=== PATIENT | female | born 1970 | race Caucasian/White ===

== ENCOUNTER 2020-06-18 22:16 | Inpatient (IN) | payer BC, SELFPAY ==
[~2020-06-18] VITALS: Ht 157.5 cm; Wt 77.6 kg
[~2020-06-18 22:16] MED LIST: BUPIVACAINE LIPOSOME/PF 266 MG/20 ML VIAL INFIL ONE; CEFAZOLIN 1 GM IVPB PREMIX 50 ML IV ONE; GLYCOPYRROLATE 0.2 MG/ML VIAL IJ ONE; LIDOCAINE 1% 10 MG/ML, 20 ML MDV INJ ONE; LR 1,000 ML IV.SOLN IV ONE; METOCLOPRAMIDE HCL 10 MG/2 ML VIAL IVP ONE; NORMAL SALINE 10 ML VIAL IVP ONE; NS IRRIG SOLN 1000 ML IR ONE; ONDANSETRON HCL 4 MG/2 ML VIAL IVP ONE; PHENYLEPHRINE HCL 10 MG/ML VIAL (NEOSYNEPHRINE) IV ONE; PIPERACILLIN/TAZOBACTAM 3.375 GM/DEX-IS 50 ML PIGGYBACK IV ONE; PROPOFOL 200MG/ 20ML VIAL (DIPRIVAN) IV ONE; ROCURONIUM BROMIDE 10 MG/ML (ZEMURON) IV ONE; SEVOFLURANE 15 MIN GAS INH ONE; fentaNYL CITRATE/PF 100 MCG/2 ML AMP IVP ONE
[2020-06-18 22:20] VITALS: BP_SYST 145
[2020-06-18] MEDS ORDERED: MORPHINE 4 MG/ML INJ. SYRINGE IVP ONE (23:00)
[2020-06-18] MEDS ORDERED: PANTOPRAZOLE SODIUM 40 MG/VIAL (PROTONIX) IVP ONE (23:00)
[2020-06-18] MEDS ORDERED: NACL 0.9% 1,000 ML IV ONE (23:00)
[2020-06-18] MEDS ORDERED: ONDANSETRON HCL 4 MG/2 ML VIAL IVP ONE (23:00)
[2020-06-18 23:05] LABS: BILIRUBIN,URINE NEGATIVE (NEGATIVE); BLOOD, URINE NEGATIVE (NEGATIVE); CLARITY/URINE CLEAR (CLEAR); COLOR,URINE YELLOW (YELLOW); GLUCOSE,URINE NEGATIVE (NEGATIVE); KETONES,URINE 2+ (NEGATIVE); LEUKOCYTE ESTERASE ,URINE NEGATIVE (NEGATIVE); NITRITE, URINE NEGATIVE (NEGATIVE); PROTEIN URINE NEGATIVE (NEGATIVE); UROBILINOGEN,URINE 0.2 (0.2-1.0)
[2020-06-18 23:27] LABS: BASOPHILS % (AUTO) 0.3 % (0.0-2.0); EOSINOPHILS # (AUTO) 0.1 K/uL (0.0-0.4); HEMATOCRIT 41.1 % (36-48); HEMOGLOBIN 13.6 g/dL (12.0-16.0); LYMPHOCYTES % (AUTO) 19.9 % (20.5-51.5); MEAN CORPUSCULAR HEMOGLOBIN 31 pg (27-31); MEAN CORPUSCULAR HGB CONC 33 % (32-36); MEAN CORPUSCULAR VOLUME 92 fL (79.0-98.0); MONOCYTES # (AUTO) 0.6 K/uL (0.0-1.0); MONOCYTES % (AUTO) 5.5 % (1.7-9.3); NEUTROPHILS # (AUTO) 7.4 K/uL (1.8-7.7); NEUTROPHILS % (AUTO) 73.3 % (40.0-70.0); PLATELET COUNT (AUTO) 216 K/uL (130-430); RED BLOOD CELL COUNT(AUTO) 4.45 MIL/uL (4.2-6.2); RED CELL DISTRIBUTION WIDTH 14.2 % (9.0-15.0); WHITE BLOOD COUNT (AUTO) 10.1 K/uL (4.8-10.8)
[2020-06-18 23:37] LABS: CALCIUM 9.5 mg/dL (8.4-11.0); CREATININE 1.07 mg/dL (0.55-1.30); POTASSIUM 3.7 mmol/L (3.5-5.1)
[2020-06-18 23:42] LABS: TOTAL BILIRUBIN 0.6 mg/dL (0.0-1.0)
[2020-06-19] MEDS ORDERED: PIPERACILLIN/TAZOBACTAM 3.375 GM/VIAL (ZOSYN) IV ONE (00:13)
[2020-06-19] MEDS ORDERED: PIPERACILLIN/TAZO 3.375 GM in NS 50 ML IV ONE (00:15)
[2020-06-19] MEDS: NACL 0.9% 1,000 ML IV SCH ×4 (00:49→20:15)
[2020-06-19 01:04] LABS: PROTHROMBIN TIME 10.1 SECS (9.5-12.5)
[2020-06-19] MEDS ORDERED: BUPIVACAINE LIPOSOME/PF 266 MG/20 ML VIAL INFIL ONE (01:11)
[2020-06-19] MEDS ORDERED: ONDANSETRON HCL 4 MG/2 ML VIAL IVP PRN ×2 (04:45→05:00)
[2020-06-19] MEDS ORDERED: HYDROmorphone 1 MG INJ. 1 MG/ML AMPUL IM PRN (04:45)
[2020-06-19] MEDS ORDERED: NALOXONE HCL 0.4 MG/ML AMP (NARCAN) IVP PRN (04:45)
[2020-06-19 04:46] VITALS: BP_SYST 100
[2020-06-19] MEDS ORDERED: KETOROLAC TROMETHAMINE 30 MG VIAL IVP PRN ×3 (05:00)
[2020-06-19] MEDS ORDERED: HYDROmorphone 1 MG INJ. 1 MG/ML AMPUL IVP PRN ×2 (05:00)
[2020-06-19 05:22] LABS: BASOPHILS % (AUTO) 0.3 % (0.0-2.0); EOSINOPHILS % (AUTO) 0.1 % (0.0-4.0); HEMOGLOBIN 11.5 g/dL (12.0-16.0); LYMPHOCYTES % (AUTO) 10.7 % (20.5-51.5); MEAN CORPUSCULAR HEMOGLOBIN 30 pg (27-31); MEAN CORPUSCULAR HGB CONC 33 % (32-36); MEAN CORPUSCULAR VOLUME 92 fL (79.0-98.0); MONOCYTES # (AUTO) 0.4 K/uL (0.0-1.0); MONOCYTES % (AUTO) 4.6 % (1.7-9.3); NEUTROPHILS # (AUTO) 8.1 K/uL (1.8-7.7); NEUTROPHILS % (AUTO) 84.3 % (40.0-70.0); PLATELET COUNT (AUTO) 188 K/uL (130-430); RED BLOOD CELL COUNT(AUTO) 3.79 MIL/uL (4.2-6.2); RED CELL DISTRIBUTION WIDTH 13.8 % (9.0-15.0); WHITE BLOOD COUNT (AUTO) 9.6 K/uL (4.8-10.8)
[2020-06-19 05:31] LABS: CALCIUM 7.5 mg/dL (8.4-11.0); CREATININE 0.9 mg/dL (0.55-1.30)
[2020-06-19] MEDS ORDERED: HYDROmorphone 1 MG INJ. 1 MG/ML AMPUL ONE (05:42)
[2020-06-19] MEDS: LR 1,000 ML IV SCH ×2 (06:42→06:44)
[2020-06-19 06:54] VITALS: BP_SYST 95
[2020-06-19 07:27] LABS: BASOPHILS % (AUTO) 0.2 % (0.0-2.0); HEMATOCRIT 34.4 % (36-48); HEMOGLOBIN 11.4 g/dL (12.0-16.0); LYMPHOCYTES # (AUTO) 0.6 K/uL (1.0-5.5); LYMPHOCYTES % (AUTO) 6.8 % (20.5-51.5); MEAN CORPUSCULAR HEMOGLOBIN 31 pg (27-31); MEAN CORPUSCULAR HGB CONC 33 % (32-36); MEAN CORPUSCULAR VOLUME 92 fL (79.0-98.0); MONOCYTES # (AUTO) 0.5 K/uL (0.0-1.0); MONOCYTES % (AUTO) 6.3 % (1.7-9.3); NEUTROPHILS # (AUTO) 7.2 K/uL (1.8-7.7); NEUTROPHILS % (AUTO) 86.7 % (40.0-70.0); PLATELET COUNT (AUTO) 169 K/uL (130-430); RED BLOOD CELL COUNT(AUTO) 3.73 MIL/uL (4.2-6.2); RED CELL DISTRIBUTION WIDTH 13.8 % (9.0-15.0); WHITE BLOOD COUNT (AUTO) 8.3 K/uL (4.8-10.8)
[2020-06-19 07:29] LABS: CALCIUM 7.5 mg/dL (8.4-11.0); CREATININE 0.93 mg/dL (0.55-1.30); POTASSIUM 4.1 mmol/L (3.5-5.1)
[2020-06-19] MEDS: PANTOPRAZOLE SODIUM 40 MG/VIAL (PROTONIX) IVP SCH (08:28)
[2020-06-19 08:29] VITALS: BP_SYST 100
[2020-06-19] MEDS ORDERED: FAMOTIDINE PF 20 MG/2 ML VIAL ONE (08:59)
[2020-06-19] MEDS ORDERED: LEVO25TA2 PO (09:30)
[2020-06-19] MEDS ORDERED: VENL37.510 PO (09:30)
[2020-06-19] MEDS ORDERED: BUPR75TA20 PO (09:30)
[2020-06-19] MEDS ORDERED: NS 500 ML IV ONE (10:00)
[2020-06-19 12:29] VITALS: BP_SYST 107
[2020-06-19 16:41] VITALS: BP_SYST 110
[2020-06-19 20:00] VITALS: BP_SYST 123
[2020-06-19] MEDS: MORPHINE 2 MG/ML INJ. SYRINGE IVP PRN (22:24)
[2020-06-20] MEDS ORDERED: IPRATROPIUM/ALBUTEROL SULFATE 3 ML AMPUL.NEB (DUONEB) INH ONE (03:15)
[2020-06-20] MEDS ORDERED: IPRATROPIUM/ALBUTEROL SULFATE 3 ML AMPUL.NEB (DUONEB) ONE (03:17)
[2020-06-20] MEDS: NACL 0.9% 1,000 ML IV SCH ×3 (03:58→23:06)
[2020-06-20 04:00] VITALS: BP_SYST 128
[2020-06-20] MEDS: MORPHINE 2 MG/ML INJ. SYRINGE IVP PRN ×3 (04:00→23:02)
[2020-06-20 08:05] LABS: CALCIUM 7.6 mg/dL (8.4-11.0); CREATININE 0.91 mg/dL (0.55-1.30); POTASSIUM 3.9 mmol/L (3.5-5.1)
[2020-06-20 08:10] LABS: BASOPHILS % (AUTO) 0.3 % (0.0-2.0); EOSINOPHILS # (AUTO) 0.1 K/uL (0.0-0.4); EOSINOPHILS % (AUTO) 1.9 % (0.0-4.0); HEMATOCRIT 33.9 % (36-48); HEMOGLOBIN 11.2 g/dL (12.0-16.0); LYMPHOCYTES # (AUTO) 0.7 K/uL (1.0-5.5); LYMPHOCYTES % (AUTO) 20.7 % (20.5-51.5); MEAN CORPUSCULAR HEMOGLOBIN 31 pg (27-31); MEAN CORPUSCULAR HGB CONC 33 % (32-36); MEAN CORPUSCULAR VOLUME 93 fL (79.0-98.0); MONOCYTES # (AUTO) 0.4 K/uL (0.0-1.0); MONOCYTES % (AUTO) 11.2 % (1.7-9.3); NEUTROPHILS # (AUTO) 2.2 K/uL (1.8-7.7); NEUTROPHILS % (AUTO) 65.9 % (40.0-70.0); PLATELET COUNT (AUTO) 134 K/uL (130-430); RED BLOOD CELL COUNT(AUTO) 3.64 MIL/uL (4.2-6.2); RED CELL DISTRIBUTION WIDTH 14.1 % (9.0-15.0)
[2020-06-20 08:12] LABS: WHITE BLOOD COUNT (AUTO) 3.3 K/uL (4.8-10.8)
[2020-06-20 08:18] VITALS: BP_SYST 144
[2020-06-20] MEDS ORDERED: PANTOPRAZOLE SODIUM 40 MG/VIAL (PROTONIX) ONE (09:00)
[2020-06-20] MEDS: PANTOPRAZOLE SODIUM 40 MG/VIAL (PROTONIX) IVP SCH (09:18)
[2020-06-20] MEDS: MORPHINE 4 MG/ML INJ. SYRINGE IVP PRN ×2 (10:59→16:57)
[2020-06-20 11:34] VITALS: BP_SYST 127
[2020-06-20 16:19] VITALS: BP_SYST 130
[2020-06-20 20:00] VITALS: BP_SYST 136
[2020-06-20] MEDS: ACETAMINOPHEN 325 MG TABLET PO PRN (20:07)
[2020-06-21] VITALS: BP_SYST 114
[2020-06-21] MEDS: NACL 0.9% 1,000 ML IV SCH (06:55)
[2020-06-21 08:00] VITALS: BP_SYST 134
[2020-06-21] MEDS: PANTOPRAZOLE SODIUM 40 MG/VIAL (PROTONIX) IVP SCH (08:48)
[2020-06-21] MEDS ORDERED: PANTOPRAZOLE SODIUM 40 MG/VIAL (PROTONIX) ONE (08:49)
[2020-06-21] MEDS: MORPHINE 2 MG/ML INJ. SYRINGE IVP PRN (08:58)
[2020-06-21 09:18] LABS: BASOPHILS % (AUTO) 0.2 % (0.0-2.0); CALCIUM 7.7 mg/dL (8.4-11.0); CREATININE 0.77 mg/dL (0.55-1.30); EOSINOPHILS # (AUTO) 0.1 K/uL (0.0-0.4); EOSINOPHILS % (AUTO) 2.6 % (0.0-4.0); HEMOGLOBIN 10.7 g/dL (12.0-16.0); LYMPHOCYTES # (AUTO) 0.5 K/uL (1.0-5.5); LYMPHOCYTES % (AUTO) 16.2 % (20.5-51.5); MEAN CORPUSCULAR HEMOGLOBIN 31 pg (27-31); MEAN CORPUSCULAR HGB CONC 33 % (32-36); MEAN CORPUSCULAR VOLUME 94 fL (79.0-98.0); MONOCYTES # (AUTO) 0.4 K/uL (0.0-1.0); MONOCYTES % (AUTO) 12.4 % (1.7-9.3); NEUTROPHILS # (AUTO) 2.3 K/uL (1.8-7.7); NEUTROPHILS % (AUTO) 68.6 % (40.0-70.0); PLATELET COUNT (AUTO) 126 K/uL (130-430); POTASSIUM 3.2 mmol/L (3.5-5.1); RED BLOOD CELL COUNT(AUTO) 3.53 MIL/uL (4.2-6.2); WHITE BLOOD COUNT (AUTO) 3.3 K/uL (4.8-10.8)
[2020-06-21] MEDS ORDERED: POTASSIUM CHLORIDE 20 MEQ TAB.PRT.SR PO ONE ×2 (10:15→16:45)
[2020-06-21] MEDS ORDERED: Effexor 37.5 MG TAB PO ONE (10:15)
[2020-06-21] MEDS ORDERED: buPROPion HCL 75 MG TABLET PO ONE (10:15)
[2020-06-21] MEDS ORDERED: LEVOTHYROXINE SODIUM 0.025 MG TABLET PO ONE (10:15)
[2020-06-21 12:05] VITALS: BP_SYST 135
[2020-06-21 16:12] VITALS: BP_SYST 131
[2020-06-21] MEDS ORDERED: BISACODYL 5 MG TABLET.DR (DULCOLAX) PO ONE (16:45)
[2020-06-21] MEDS ORDERED: ACET-2634 PO (16:54)
[2020-06-21] MEDS ORDERED: colace PO (16:57)
[2020-06-21] MEDS ORDERED: BISACODYL 5 MG TABLET.DR (DULCOLAX) ONE (17:31)
[2020-06-21] MEDS: MORPHINE 4 MG/ML INJ. SYRINGE IVP PRN (22:21)
[2020-06-22] VITALS: BP_SYST 124
[2020-06-22] MEDS: ACETAMINOPHEN 325 MG TABLET PO PRN (06:36)
[2020-06-22] MEDS ORDERED: LEVOTHYROXINE SODIUM 0.025 MG TABLET PO SCH (07:00)
[2020-06-22 08:00] VITALS: BP_SYST 126
[2020-06-22] MEDS ORDERED: PANTOPRAZOLE SODIUM 40 MG/VIAL (PROTONIX) ONE (08:09)
[2020-06-22] MEDS: PANTOPRAZOLE SODIUM 40 MG/VIAL (PROTONIX) IVP SCH (08:11)
[2020-06-22] MEDS ORDERED: buPROPion HCL 75 MG TABLET PO SCH (09:00)
[2020-06-22] MEDS ORDERED: Effexor 37.5 MG TAB PO SCH (09:00)
[2020-06-22 09:45] LABS: CREATININE 0.67 mg/dL (0.55-1.30); POTASSIUM 3.7 mmol/L (3.5-5.1)
[2020-06-22 10:00] LABS: BASOPHILS % (AUTO) 0.2 % (0.0-2.0); EOSINOPHILS # (AUTO) 0.1 K/uL (0.0-0.4); HEMATOCRIT 31.1 % (36-48); HEMOGLOBIN 10.2 g/dL (12.0-16.0); LYMPHOCYTES # (AUTO) 0.8 K/uL (1.0-5.5); LYMPHOCYTES % (AUTO) 22.9 % (20.5-51.5); MEAN CORPUSCULAR HEMOGLOBIN 31 pg (27-31); MEAN CORPUSCULAR HGB CONC 33 % (32-36); MEAN CORPUSCULAR VOLUME 93 fL (79.0-98.0); MONOCYTES # (AUTO) 0.5 K/uL (0.0-1.0); MONOCYTES % (AUTO) 13.1 % (1.7-9.3); NEUTROPHILS # (AUTO) 2.2 K/uL (1.8-7.7); NEUTROPHILS % (AUTO) 60.8 % (40.0-70.0); PLATELET COUNT (AUTO) 148 K/uL (130-430); RED BLOOD CELL COUNT(AUTO) 3.33 MIL/uL (4.2-6.2); RED CELL DISTRIBUTION WIDTH 13.6 % (9.0-15.0); WHITE BLOOD COUNT (AUTO) 3.6 K/uL (4.8-10.8)
[2020-06-22 10:39] VITALS: BP_SYST 126
[2020-06-22 11:04] VITALS: BP_SYST 137
== END 2020-06-22 11:20 | disposition home or self-care (01) | DRG 337 ==
LOC: SED 22:16 → SMU 06-19 00:21
PROVIDERS: ADMIT Internal Medicine Hospice and Palliative Medicine; ATTEND Internal Medicine Hospice and Palliative Medicine
PROC: 0DNW0ZZ Release Peritoneum, Open Approach (ICD-10-PCS; 2020-06-19)
PROC: 0DJD0ZZ Inspection of Lower Intestinal Tract, Open Approach (ICD-10-PCS; principal; 2020-06-19 01:52)
DX: K56.699 Other intestinal obstruction unspecified as to partial versus complete obstruction (principal); E03.9 Hypothyroidism, unspecified; F41.9 Anxiety disorder, unspecified; Z20.822 Contact with and (suspected) exposure to COVID-19; Z90.710 Acquired absence of both cervix and uterus; Z98.84 Bariatric surgery status
CPT/HCPCS: 36415; 71045; 76376; 80048; 80053; 81003; 82962; 83690-TC; 84702-TC; 85025; 85610-TC; 85730-TC; 86886; 86900; 86901; 87040-TC; 87081; 93005; 94010; 94640; 94760; 96361; 96365; 96374; 96375; 99291; C9113; C9290; J0690; J1170; J2001; J2270; J2370; J2405; J2543; J2704; J2765; J3010; J3490; J7120

== ENCOUNTER 2020-06-29 16:10 | Inpatient (IN) | payer BC, SELFPAY ==
[~2020-06-29] VITALS: Ht 157.5 cm; Wt 68.0 kg
[2020-06-29 16:10] VITALS: BP_SYST 141
[~2020-06-29 16:10] MED LIST changes: +ACET-2634 PO; -BUPIVACAINE LIPOSOME/PF 266 MG/20 ML VIAL INFIL ONE; +BUPR75TA20 PO; -CEFAZOLIN 1 GM IVPB PREMIX 50 ML IV ONE; +EFF37 PO; -GLYCOPYRROLATE 0.2 MG/ML VIAL IJ ONE; +LEVO25TA2 PO; -LIDOCAINE 1% 10 MG/ML, 20 ML MDV INJ ONE; -LR 1,000 ML IV.SOLN IV ONE; -METOCLOPRAMIDE HCL 10 MG/2 ML VIAL IVP ONE; -NORMAL SALINE 10 ML VIAL IVP ONE; -NS IRRIG SOLN 1000 ML IR ONE; -ONDANSETRON HCL 4 MG/2 ML VIAL IVP ONE; -PHENYLEPHRINE HCL 10 MG/ML VIAL (NEOSYNEPHRINE) IV ONE; -PIPERACILLIN/TAZOBACTAM 3.375 GM/DEX-IS 50 ML PIGGYBACK IV ONE; -PROPOFOL 200MG/ 20ML VIAL (DIPRIVAN) IV ONE; -ROCURONIUM BROMIDE 10 MG/ML (ZEMURON) IV ONE; -SEVOFLURANE 15 MIN GAS INH ONE; +colace PO; -fentaNYL CITRATE/PF 100 MCG/2 ML AMP IVP ONE
--- NOTE | 2020-06-29 16:10 | NUR ---
PATIENT AAO AND AMBULATORY CAME TO THE ER C/O CHEST PAIN. Patient was admitted to hospital before for small bowel surgey and was discharged a week ago. Patient stated that she has nausea and vomiting x2 today. Currently pain level of 8/10 on the pain scale. VS are stable and waiting for MD galdamez and orders. Patient attached marine consultant.
--- NOTE | 2020-06-29 16:10 | NUR ---
placed in bed 1. triaged at bedside. 12 Lead ekg in progress
--- NOTE | 2020-06-29 16:20 | NUR ---
DR. LOPEZ AT BEDSIDE TO EVALUATE PT STATUS
[2020-06-29] MEDS ORDERED: ONDANSETRON HCL 4 MG/2 ML VIAL IVP ONE (17:15)
[2020-06-29] MEDS ORDERED: MORPHINE 2 MG/ML INJ. SYRINGE IVP ONE ×2 (17:15→17:30)
[2020-06-29] MEDS ORDERED: IOHEXOL 350 mgI/mL, 150 ML INFUS..BTL IV ONE (17:23)
[2020-06-29] MEDS ORDERED: PANTOPRAZOLE SODIUM 40 MG/VIAL (PROTONIX) ONE (17:25)
[2020-06-29] MEDS ORDERED: PANTOPRAZOLE SODIUM 80 MG in NS 100 ML IVP ONE (17:30)
--- NOTE | 2020-06-29 17:39 | NUR ---
IV medication Protonix and Morphine administered. Ice chips given to patient with continued nausea and vomiting. waiting for radiology to take patient to CT.
[2020-06-29 17:41] LABS: CALCIUM 8.8 mg/dL (8.4-11.0); CREATININE 0.72 mg/dL (0.55-1.30); POTASSIUM 3.6 mmol/L (3.5-5.1)
[2020-06-29 17:44] LABS: BASOPHILS % (AUTO) 0.2 % (0.0-2.0); EOSINOPHILS # (AUTO) 0.1 K/uL (0.0-0.4); EOSINOPHILS % (AUTO) 1.2 % (0.0-4.0); HEMOGLOBIN 12.8 g/dL (12.0-16.0); LYMPHOCYTES # (AUTO) 1.1 K/uL (1.0-5.5); LYMPHOCYTES % (AUTO) 10.8 % (20.5-51.5); MEAN CORPUSCULAR HEMOGLOBIN 30 pg (27-31); MEAN CORPUSCULAR HGB CONC 33 % (32-36); MEAN CORPUSCULAR VOLUME 92 fL (79.0-98.0); MONOCYTES # (AUTO) 0.8 K/uL (0.0-1.0); NEUTROPHILS # (AUTO) 8.2 K/uL (1.8-7.7); NEUTROPHILS % (AUTO) 79.8 % (40.0-70.0); PLATELET COUNT (AUTO) 350 K/uL (130-430); RED BLOOD CELL COUNT(AUTO) 4.24 MIL/uL (4.2-6.2); RED CELL DISTRIBUTION WIDTH 14.1 % (9.0-15.0); WHITE BLOOD COUNT (AUTO) 10.3 K/uL (4.8-10.8)
[2020-06-29 17:47] LABS: TOTAL BILIRUBIN 0.4 mg/dL (0.0-1.0)
[2020-06-29 17:58] LABS: PROTHROMBIN TIME 9.9 SECS (9.5-12.5)
--- NOTE | 2020-06-29 18:00 | NUR ---
PT TO RADIOLOGY BY THERESA
--- NOTE | 2020-06-29 18:25 | NUR ---
PATIENT BACK FROM RADIOLOGY BROUGHT BY STAFF VIA [facility]. REATTACHED TO [employer]SELE[employer] BINDER COVERER.
--- NOTE | 2020-06-29 19:34 | NUR ---
COVID AMANDEEP SWAB COLLECTED AT BEDSIDE AND SENT TO LAB FOR ANALYSIS.
[2020-06-29] MEDS ORDERED: ACETAMINOPHEN 325 MG TABLET PO PRN (20:30)
[2020-06-29] MEDS ORDERED: ALBUTEROL SULFATE 0.083% 2.5 MG/3 ML VIAL.NEB INH PRN (20:30)
--- NOTE | 2020-06-29 20:30 | NUR ---
ADMIT ORDERS RECEIVED FROM DR. BEAVERS. PT TO BE ADMITTED TO MED SURG UNIT.
[2020-06-29] MEDS ORDERED: MORPHINE 4 MG/ML INJ. SYRINGE IVP ONE (20:45)
--- NOTE | 2020-06-29 20:45 | NUR ---
RECEIVED NEW ORDER FOR NG TUBE TO BE PLACED. PATIENT REFUSED TO HAVE NG TUBE PLACED. STATED SHE DID NOT WANT IT AGAIN WAS SCARED TO GET IT PLACED AND DIDNT WANT IT. RISKS AND BENEFITS EXPLAINED X3. MD MADE AWARE OF REFUSAL.
--- NOTE | 2020-06-29 20:45 | NUR ---
MRSA SWAB OBTAINED AND SENT TO LAB FOR ANALYSIS
--- NOTE | 2020-06-29 21:05 | NUR ---
Patient will be admitted to care of COLIN/RUTHANN. Admitted to MED SURG unit. Will go to room 110B. Belongings list completed. Complete and up to date summary report printed. SBAR report to be given at bedside with opportunity for questions.
[2020-06-29] MEDS: NACL 0.9% 1,000 ML IV SCH ×2 (21:07→21:37)
--- NOTE | 2020-06-29 21:15 | NUR ---
ADMISSION: The patient, ALFIE OLIVER, 49 y/o, F admitted by ASHLEY SHAW MD,WITH THE DIAGNOSIS OF SOB ,TO ROOM 110 B , PRIMARY RN AT BEDSIDE . Addendum: 06/30/20 at 0316 by Keri Arnold RN CORRECTION: DIAGNOSIS IS SMALL BOWEL OBSTRUCTION
[2020-06-29 21:38] VITALS: BP_SYST 144
--- NOTE | 2020-06-29 22:03 | NUR ---
Spoke to Gonzalo BAKER. Informed MD that patient is complaining of nausea, nausea medication is already . Patient wants medication to help her sleep, also wants ice chips. MD will place orders. All questions answered.
[2020-06-29] MEDS ORDERED: TEMAZEPAM 7.5 MG CAPSULE PO PRN (22:30)
[2020-06-29] MEDS ORDERED: ONDANSETRON HCL 4 MG/2 ML VIAL IVP PRN (22:30)
[2020-06-30] VITALS (7 sets, daily range): BP systolic 129–164
[2020-06-30] MEDS ORDERED: cefTRIAXone 1 GM IVPB PREMIX 50 ML IV ONE (00:12)
[2020-06-30] MEDS ORDERED: AZITHROMYCIN 500 MG/VIAL (ZITHROMAX) IV ONE (00:13)
[2020-06-30] MEDS: AZITHROMYCIN 500 MG in NS 250 ML IV SCH ×2 (00:14→01:39)
[2020-06-30] MEDS: MORPHINE 4 MG/ML INJ. SYRINGE IVP PRN ×4 (00:18→21:26)
[2020-06-30] MEDS: cefTRIAXone 1 GM IVPB PREMIX 50 ML IV SCH ×2 (00:18→21:30)
--- NOTE | 2020-06-30 00:49 | NUR ---
NGT PLACED, 16G. CXR ORDERED PER PROTOCOL TO CONFIRM PLACEMENT Addendum: 06/30/20 at 0050 by Jakob Constantino RN 16 FR
--- NOTE | 2020-06-30 02:00 | NUR ---
Rounding Note Patient is asleep, in bed, bed locked and in lowest position, respirations even and unlabored, no signs of respiratory distress, on room air, call light within reach. Will continue to monitor.
[2020-06-30] MEDS: MORPHINE 2 MG/ML INJ. SYRINGE IVP PRN ×2 (03:13→16:57)
[2020-06-30] MEDS: LEVOTHYROXINE SODIUM 0.025 MG TABLET PO SCH (06:29)
[2020-06-30] MEDS: NACL 0.9% 1,000 ML IV SCH ×2 (06:35→21:26)
[2020-06-30 06:36] LABS: BASOPHILS % (AUTO) 0.1 % (0.0-2.0); HEMATOCRIT 39.2 % (36-48); HEMOGLOBIN 12.9 g/dL (12.0-16.0); LYMPHOCYTES # (AUTO) 0.5 K/uL (1.0-5.5); LYMPHOCYTES % (AUTO) 2.6 % (20.5-51.5); MEAN CORPUSCULAR HEMOGLOBIN 30 pg (27-31); MEAN CORPUSCULAR HGB CONC 33 % (32-36); MEAN CORPUSCULAR VOLUME 92 fL (79.0-98.0); MONOCYTES # (AUTO) 0.7 K/uL (0.0-1.0); MONOCYTES % (AUTO) 3.7 % (1.7-9.3); NEUTROPHILS # (AUTO) 18.3 K/uL (1.8-7.7); NEUTROPHILS % (AUTO) 93.6 % (40.0-70.0); PLATELET COUNT (AUTO) 381 K/uL (130-430); RED BLOOD CELL COUNT(AUTO) 4.25 MIL/uL (4.2-6.2); WHITE BLOOD COUNT (AUTO) 19.5 K/uL (4.8-10.8)
--- NOTE | 2020-06-30 06:54 | NUR ---
Patient is awake, alert, in bed, given pain medication, respirations even and unlabored, no signs of respiratory distress, call light within reach, NGT to right nare is on low intermittent suction, will endorse to day shift and continue to monitor.
[2020-06-30] MEDS ORDERED: GASTROGRAFIN 120 ML ONE (07:06)
[2020-06-30 07:11] LABS: ALANINE AMINOTRANSFERASE 29 U/L (12-78); ALBUMIN 2.9 g/dL (3.4-4.8); ANION GAP 14 (5-15); ASPARTATE AMINOTRANSFERASE 19 U/L (10-37); CALCIUM 8.4 mg/dL (8.4-11.0); CHLORIDE 101 mmol/L (98-107); CREATININE 0.63 mg/dL (0.55-1.30); GLUCOSE 133 mg/dL (70-99); POTASSIUM 3.8 mmol/L (3.5-5.1); SODIUM SERUM 141 mmol/L (136-145); TOTAL BILIRUBIN 0.4 mg/dL (0.0-1.0); UREA NITROGEN, BLOOD 7 mg/dL (8-21)
[2020-06-30 07:30] LABS: GFR AFRICAN AMERICAN 129 mL/min (>90)
--- NOTE | 2020-06-30 08:00 | NUR ---
Opening note: Pt awake, alert and verbally responsive. AOx4. Reports pain of 7/10 in abdomen. No acute distress noted. Respirations even and unlabored on RA. IV L AC intact, no redness or swelling noted. Bed in low position, call light within reach, WCTM.
[2020-06-30] MEDS: Effexor 37.5 MG TAB PO SCH (09:00)
[2020-06-30] MEDS: buPROPion HCL 75 MG TABLET PO SCH (09:00)
--- NOTE | 2020-06-30 18:50 | NUR ---
Closing note: Pt sleeping in bed. NG tube connected to intermittent suction.
--- NOTE | 2020-06-30 19:30 | NUR ---
OPENING NOTES RECEIVED REPORT FROM DAY SHIFT RN. PT RESTING IN BED, ALERT & ORIENTED X4. BREATHING EVEN AND UNLABORED TO ROOM AIR. NO SIGNS OF RESPIRATORY DISTRESS NOTED. NG TUBE CONNECTED TO INTERMITTENT SUCTION. IV ON LEFT AC 20G INTACT, IVF RUNNING ORDERED RATE. BED LOCKED IN LOWEST POSITION. CALL LIGHT WITHIN REACH. SIDE RAILS UP X3. SAFETY AND FALL PRECAUTIONS ARE IN PLACE. WILL CONTINUE TO MONITOR.
[2020-07-01 01:19] VITALS: BP_SYST 148
[2020-07-01] MEDS: MORPHINE 4 MG/ML INJ. SYRINGE IVP PRN ×3 (01:33→20:46)
--- NOTE | 2020-07-01 02:20 | NUR ---
DR. GIPSON AT THE BEDSIDE. DR. GIPSON STATED TO DISCONTINUE NG-TUBE AND CHANGE DIET ORDER TO CLEAR LIQUID FOR BREAKFAST AND FULL LIQUID FOR LUNCH.
--- NOTE | 2020-07-01 02:35 | NUR ---
D/S NG-TUBE. NO S/S OF ACUTE DISTRESS NOTED. PT TOLERATED WELL. Addendum: 07/01/20 at 0259 by Kajal Travis RN DISCARD.
--- NOTE | 2020-07-01 02:35 | NUR ---
D/C NG-TUBE. NO S/S OF ACUTE DISTRESS NOTED. PT TOLERATED WELL.
[2020-07-01] MEDS: AZITHROMYCIN 500 MG in NS 250 ML IV SCH ×2 (04:29→20:34)
[2020-07-01] MEDS ORDERED: AZITHROMYCIN 500 MG in NS 250 ML IV ONE (05:15)
[2020-07-01] MEDS: NACL 0.9% 1,000 ML IV SCH ×3 (05:18→21:39)
[2020-07-01] MEDS: MORPHINE 2 MG/ML INJ. SYRINGE IVP PRN ×2 (05:20→13:02)
[2020-07-01] MEDS: LEVOTHYROXINE SODIUM 0.025 MG TABLET PO SCH (06:05)
--- NOTE | 2020-07-01 06:52 | NUR ---
CLOSING NOTES PT RESTING IN BED. BREATHING EVEN AND UNLABORED TO ROOM AIR. NO SIGNS OF RESPIRATORY DISTRESS NOTED. IV ON LEFT AC 20G INTACT, IVF RUNNING ORDERED RATE. PT DENIES PAIN AT THIS TIME. BED LOCKED IN LOWEST POSITION. CALL LIGHT WITHIN REACH. SIDE RAILS UP X3. SAFETY AND FALL PRECAUTIONS ARE IN PLACE. ALL NEEDS ARE MET THROUGHOUT SHIFT. WILL CONTINUE TO MONITOR UNTIL ENDORSE TO DAY SHIFT RN.
--- NOTE | 2020-07-01 07:40 | NUR ---
AM ROUNDS: PATIENT AWAKE LYING ON THE BED. IVF RUNNING AT LEFT AC INTACT. DENIES ANY PAIN. CALL LIGHT WITH IN REACH. BED LOCKED AT LOWEST POSITION. STABLE.
[2020-07-01 07:45] VITALS: BP_SYST 153
[2020-07-01] MEDS: buPROPion HCL 75 MG TABLET PO SCH (08:42)
[2020-07-01] MEDS: Effexor 37.5 MG TAB PO SCH (08:43)
--- NOTE | 2020-07-01 08:43 | NUR ---
Refused Effexor po: Patient refused effexor po meds due to feeling more anxious.Patient does not want any dosage adjustment.
--- NOTE | 2020-07-01 09:58 | NUR ---
SS notes: BUCKLE SORTER was referred by nursing to see patient for suicide risk. BUCKLE SORTER met with patient at bedside. Pt was alert and oriented x4, calm and cooperative throughout the encounter. Pt is a 49 y/o female who came in for small bowel obstruction. Pt is independent with ADL's and does not use any DME. Pt stated she does not receive support at home and feels that when she needs to be brought to the ED, she is a hassle to her . Pt stated she is not suicidal and has no intentions on hurting self. Pt states she has anxiety and takes Wellbutrin for it. Pt does not see a psychiatrist/therapist and denies any inpt psych admissions. Pt denies substance use/abuse. BUCKLE SORTER provided patient with emotional support, emailed two needle machine operator, and updated Peggy JIMENEZ CM. No further SS needs identified but will remain available.
--- NOTE | 2020-07-01 11:59 | NUR ---
Dietitian Recommendations *Recommend: Full liquid diet. ONS Ensure Enlive comes standard w/ the diet and provides 1050 Kcal and 60gm protein daily. *Recommend: add Alexis BID. *Recommend: slowly advance diet to GI Soft when medically appropriate. Please see Nutritional Assessment for details. JOVITA MANSFIELD
[2020-07-01 12:15] VITALS: BP_SYST 141
--- NOTE | 2020-07-01 13:02 | NUR ---
Pain Meds: c/o Abdominal pain,due iv Morphine 2mg ivp given per patient's request ,for pain of 5/10. Tolerated ,with no problem.
--- NOTE | 2020-07-01 14:28 | NUR ---
Rn rounding: Patient sleeping. stable.
[2020-07-01 15:22] VITALS: BP_SYST 146
--- NOTE | 2020-07-01 17:15 | NUR ---
PAIN MEDS: C/O ABDOMINAL PAIN,DUE IV MORPHINE GIVEN PER PATIENT'S REQUEST. WITH NO UNTOWARD REACTIONS.
--- NOTE | 2020-07-01 18:50 | NUR ---
closing notes: Patient resting this time. Iv fluids running at left ac intact.No nausea/vomiting noted. Comfortable this time. Call light with in reach and bed locked at lowest position. Patient refused bed alarm on.
--- NOTE | 2020-07-01 19:15 | NUR ---
OPENING NOTE Patient sleeping in bed. No s/s pain or distress noted, pt denies pain at this time. Respirations even and unlabored. IVF infusing well. No s/s redness, infiltration, infection. Head of bed raised. Bed locked & lowest position. Call light within reach, demonstrated proper use of call light.
[2020-07-01 20:00] VITALS: BP_SYST 146
[2020-07-01] MEDS: cefTRIAXone 1 GM IVPB PREMIX 50 ML IV SCH (21:37)
[2020-07-02] VITALS: BP_SYST 151
[2020-07-02] MEDS: MORPHINE 4 MG/ML INJ. SYRINGE IVP PRN ×3 (02:47→22:52)
[2020-07-02] MEDS: NACL 0.9% 1,000 ML IV SCH ×3 (04:30→19:58)
[2020-07-02] MEDS: LEVOTHYROXINE SODIUM 0.025 MG TABLET PO SCH (06:19)
--- NOTE | 2020-07-02 06:30 | NUR ---
CLOSING NOTE Patient resting in bed. No s/s pain or distress noted - patient verbally denies pain at this time. Respirations even and unlabored, head of bed elevated. IVF infusing well - no s/s infiltration, redness, infection. Bed in lowest position, call light within reach.
[2020-07-02 08:00] VITALS: BP_SYST 150
--- NOTE | 2020-07-02 08:00 | NUR ---
Note Pt ambulating in hallway with IV pole with steady gait and now sitting up in bed eating her Full Liquids diet. No SOB/resp distress or severe abdominal pain/discomfort noted at this time. Pt denies any N/V - pt states she had loose bowel movement at this time. IV in left forearm intact and patent. Call light within reach.
[2020-07-02] MEDS: buPROPion HCL 75 MG TABLET PO SCH (08:32)
[2020-07-02] MEDS: Effexor 37.5 MG TAB PO SCH ×2 (08:33→08:34)
[2020-07-02 11:29] LABS: BASOPHILS % (AUTO) 0.4 % (0.0-2.0); EOSINOPHILS # (AUTO) 0.1 K/uL (0.0-0.4); EOSINOPHILS % (AUTO) 0.7 % (0.0-4.0); HEMATOCRIT 35.6 % (36-48); HEMOGLOBIN 11.6 g/dL (12.0-16.0); LYMPHOCYTES # (AUTO) 0.9 K/uL (1.0-5.5); LYMPHOCYTES % (AUTO) 8.4 % (20.5-51.5); MEAN CORPUSCULAR HEMOGLOBIN 30 pg (27-31); MEAN CORPUSCULAR HGB CONC 33 % (32-36); MEAN CORPUSCULAR VOLUME 92 fL (79.0-98.0); MONOCYTES % (AUTO) 9.4 % (1.7-9.3); NEUTROPHILS # (AUTO) 9.1 K/uL (1.8-7.7); NEUTROPHILS % (AUTO) 81.1 % (40.0-70.0); PLATELET COUNT (AUTO) 375 K/uL (130-430); RED BLOOD CELL COUNT(AUTO) 3.88 MIL/uL (4.2-6.2); RED CELL DISTRIBUTION WIDTH 14.2 % (9.0-15.0); WHITE BLOOD COUNT (AUTO) 11.2 K/uL (4.8-10.8)
[2020-07-02] MEDS ORDERED: GASTROGRAFIN 120 ML ONE (11:31)
[2020-07-02 11:33] LABS: CALCIUM 8.1 mg/dL (8.4-11.0); CREATININE 0.54 mg/dL (0.55-1.30); POTASSIUM 3.5 mmol/L (3.5-5.1)
[2020-07-02 11:35] VITALS: BP_SYST 146
[2020-07-02 11:39] LABS: ALBUMIN 2.6 g/dL (3.4-4.8); TOTAL BILIRUBIN 0.6 mg/dL (0.0-1.0)
--- NOTE | 2020-07-02 14:00 | NUR ---
Note Pt went down to Radiology for XR small bowel follow through via wheelchair at 1150am. Pt back to room and having some orange sherbert - no N/V noted all shift. Dr Casarez called at 1330 to notify of results of XR Small Bowel Follow Through. Waiting for call back.
[2020-07-02 15:50] VITALS: BP_SYST 142
[2020-07-02] MEDS ORDERED: NALOXONE HCL 0.4 MG/ML AMP (NARCAN) IVP PRN (17:45)
--- NOTE | 2020-07-02 17:45 | NUR ---
NOTE Dr Carty (surgeon) on the floor at pt's bedside at this time. MD assessed pt. Informed MD that Dr Casarez was called to notify MD of results of XR small bowel follow through. Radiologist Dr Miller had suggested that pt have suctioning after contrast was given at 1200 XR of small bowel follow through, pt does not want any NGT to LCS - pt states she is not nauseated or have any abdominal pain all shift. Pt has had number of loose bowel movements all day. Dr Carty stated pt can be discharged home from surgical point of view, no surgical procedures planned. Pt put on soft diet and pt can continue this diet home as well. Pt resting in bed eating her sherbet at this time. Pt has tolerable pain at this time.
[2020-07-02] MEDS: ACETAMINOPHEN/CODEINE 300 MG-30 MG TABLET PO PRN (18:12)
--- NOTE | 2020-07-02 18:30 | NUR ---
Note Pt resting in bed and watching television at this time. Pt was checked on q1' and PRN all shift for needs and care. Pt was maintained with safety precautions. Abdominal incision intact and no open areas/bleeding/drainage noted at this time. Call light within reach.
--- NOTE | 2020-07-02 19:30 | NUR ---
OPENING NOTES RECEIVED REPORT FROM DAY SHIFT RN. PT RESTING IN BED, ALERT & ORIENTED X4. BREATHING EVEN AND UNLABORED TO ROOM AIR. NO SIGNS OF RESPIRATORY DISTRESS NOTED. IV INTACT, NO S/S OF INFILTRATION AT IV SITE, IVF RUNNING ORDERED RATE. BED LOCKED IN LOWEST POSITION. CALL LIGHT WITHIN REACH. SIDE RAILS UP X3. SAFETY AND FALL PRECAUTIONS ARE IN PLACE. WILL CONTINUE TO MONITOR.
[2020-07-02] MEDS: AZITHROMYCIN 500 MG in NS 250 ML IV SCH (19:59)
[2020-07-02 20:00] VITALS: BP_SYST 150
--- NOTE | 2020-07-02 21:54 | NUR ---
CONSULT: CONSULT CALLED FOR DR. MCKEON I SPOKE WITH RITA EXCHANGE REASON FOR CONSULT: NAUSEA AND VOMITING REQUESTING CONSULT: DR. SHAW HAND SHOE CUTTER PHONE NUMBER: [phone]
[2020-07-02] MEDS: cefTRIAXone 1 GM IVPB PREMIX 50 ML IV SCH (22:54)
[2020-07-03] MEDS: NACL 0.9% 1,000 ML IV SCH ×3 (00:57→21:22)
[2020-07-03 01:40] VITALS: BP_SYST 138
[2020-07-03] MEDS: MORPHINE 4 MG/ML INJ. SYRINGE IVP PRN (03:13)
[2020-07-03] MEDS: LEVOTHYROXINE SODIUM 0.025 MG TABLET PO SCH (06:14)
[2020-07-03 07:45] VITALS: BP_SYST 150
[2020-07-03] MEDS: Effexor 37.5 MG TAB PO SCH (08:10)
[2020-07-03] MEDS: buPROPion HCL 75 MG TABLET PO SCH (08:18)
[2020-07-03] MEDS: ACETAMINOPHEN/CODEINE 300 MG-30 MG TABLET PO PRN ×4 (08:19→21:21)
--- NOTE | 2020-07-03 10:15 | NUR ---
Note Dr Casarez on the floor at 0910am to assess pt and check labs/tests at this time. Pt was assessed by Dr Campbell (GI) at bedside at 0945am. Questions/concerns were answered at this time. Pt having US of bilateral lower extremities at bedside at this time. Pt's abdominal pain tolerable at this time. Pt denies any needs at this time. Call light within reach all shift.
[2020-07-03] MEDS ORDERED: PANTOPRAZOLE SODIUM 40 MG/VIAL (PROTONIX) IVP ONE (10:30)
[2020-07-03 11:04] VITALS: BP_SYST 150
[2020-07-03 12:23] VITALS: BP_SYST 133
[2020-07-03 16:28] VITALS: BP_SYST 143
--- NOTE | 2020-07-03 17:00 | NUR ---
Note Dr Carty at bedside to assess pt and answer questions/concerns at this time. Addendum: 07/03/20 at 1702 by Evangelina Pepe RN Pt given abdominal binder per Dr Carty's request
--- NOTE | 2020-07-03 18:30 | NUR ---
Note Pt sitting up in bed to eat her Full liquids dinner tray slowly. Pt was checked on q1' and PRN all shift for needs and care. Pt was maintained with safety precautions all shift. Pt's bed in low position all shift. Pt ambulates to restroom independently with steady gait. No N/V noted all shift. Pain tolerable at this time. IV in LAC intact and patent infusing IVF's well. Pt was informed that she will be NPO after midnight for EGD in am. Call light within reach. Abdominal pain/discomfort tolerable at this time.
[2020-07-03 20:00] VITALS: BP_SYST 144
[2020-07-03] MEDS: AZITHROMYCIN 500 MG in NS 250 ML IV SCH (21:22)
[2020-07-03] MEDS: cefTRIAXone 1 GM IVPB PREMIX 50 ML IV SCH (21:22)
[2020-07-04 00:30] VITALS: BP_SYST 140
[2020-07-04] MEDS: MORPHINE 2 MG/ML INJ. SYRINGE IVP PRN ×2 (00:38→23:07)
[2020-07-04] MEDS: NACL 0.9% 1,000 ML IV SCH ×3 (04:30→15:09)
[2020-07-04] MEDS: MORPHINE 4 MG/ML INJ. SYRINGE IVP PRN (04:41)
[2020-07-04] MEDS: LEVOTHYROXINE SODIUM 0.025 MG TABLET PO SCH (05:26)
[2020-07-04 06:20] LABS: BASOPHILS % (AUTO) 0.4 % (0.0-2.0); EOSINOPHILS # (AUTO) 0.1 K/uL (0.0-0.4); EOSINOPHILS % (AUTO) 2.2 % (0.0-4.0); HEMATOCRIT 32.2 % (36-48); HEMOGLOBIN 10.9 g/dL (12.0-16.0); LYMPHOCYTES # (AUTO) 0.7 K/uL (1.0-5.5); LYMPHOCYTES % (AUTO) 11.9 % (20.5-51.5); MEAN CORPUSCULAR HEMOGLOBIN 31 pg (27-31); MEAN CORPUSCULAR HGB CONC 34 % (32-36); MEAN CORPUSCULAR VOLUME 91 fL (79.0-98.0); MONOCYTES # (AUTO) 0.8 K/uL (0.0-1.0); MONOCYTES % (AUTO) 13.5 % (1.7-9.3); NEUTROPHILS # (AUTO) 4.5 K/uL (1.8-7.7); PLATELET COUNT (AUTO) 355 K/uL (130-430); RED BLOOD CELL COUNT(AUTO) 3.54 MIL/uL (4.2-6.2); WHITE BLOOD COUNT (AUTO) 6.3 K/uL (4.8-10.8)
[2020-07-04 07:00] LABS: PROTHROMBIN TIME 10.7 SECS (9.5-12.5)
[2020-07-04 07:18] LABS: ALBUMIN 2.4 g/dL (3.4-4.8); CALCIUM 8.2 mg/dL (8.4-11.0); CREATININE 0.54 mg/dL (0.55-1.30); TOTAL BILIRUBIN 0.5 mg/dL (0.0-1.0)
[2020-07-04] MEDS ORDERED: MEPERIDINE 100 MG INJ. 100 MG/ML VIAL ONE (07:59)
[2020-07-04] MEDS ORDERED: MIDAZOLAM HCL 5 MG/5 ML VIAL ONE (07:59)
[2020-07-04] MEDS ORDERED: SIMETHICONE 40 MG/0.6 ML ML ONE (07:59)
[2020-07-04 08:00] VITALS: BP_SYST 142
--- NOTE | 2020-07-04 08:00 | NUR ---
OPENING NOTES RECEIVED PATIENT FROM NIGHT NURSE. PATIENT IS ALERT AND ORIENTED X4. SITTING IN CHAIR. ON ROOM AIR AND TOLERATING WELL WITH NO SIGNS OF SHORTNESS OF BREATH NOTED. IV IS PATENT AND INFUSING FLUIDS ORDERED. CALL LIGHT WITHIN REACH. BED LOCKED AND IN LOWEST POSITION. SAFETY PRECAUTIONS IN PLACE. WILL CONTINUE TO MONITOR.
--- NOTE | 2020-07-04 08:44 | NUR ---
PATIENT LEFT THE FLOOR FOR ECG. WILL AWAIT FOR ARRIVAL BACK TO UNIT.
[2020-07-04] MEDS ORDERED: PANTOPRAZOLE SODIUM 40 MG/VIAL (PROTONIX) IVP SCH (09:00)
--- NOTE | 2020-07-04 10:00 | NUR ---
RECEIVED PATIENT BACK ON FLOOR FROM EGD. PATIENT IN STABLE CONDITION. WILL CONTINUE TO MONITOR.
[2020-07-04] MEDS: Effexor 37.5 MG TAB PO SCH (10:01)
[2020-07-04] MEDS: buPROPion HCL 75 MG TABLET PO SCH (10:01)
--- NOTE | 2020-07-04 11:35 | NUR ---
HIGH ALERT NOTE: Called Dr. SHAW back at [phone] identified within the medical roster to verify physician authenticity.NEW ORDERS GIVEN. NOTED AND CARRIED OUT.
[2020-07-04 11:43] VITALS: BP_SYST 151
[2020-07-04] MEDS ORDERED: POTASSIUM CHLORIDE 20 MEQ/PKT PACKET PO ONE ×2 (11:45→16:00)
[2020-07-04 16:00] VITALS: BP_SYST 153
[2020-07-04] MEDS: ACETAMINOPHEN/CODEINE 300 MG-30 MG TABLET PO PRN ×2 (17:19→21:34)
--- NOTE | 2020-07-04 18:25 | NUR ---
CLOSING NOTES PATIENT IS ALERT AND ORIENTED X4. SITTING IN CHAIR. ON ROOM AIR AND TOLERATING WELL WITH NO SIGNS OF SHORTNESS OF BREATH NOTED. IV IS PATENT AND INFUSING FLUIDS ORDERED. CALL LIGHT WITHIN REACH. BED LOCKED AND IN LOWEST POSITION. SAFETY PRECAUTIONS IN PLACE. WILL ENDORSE TO NIGHT NURSE.
--- NOTE | 2020-07-04 18:30 | NUR ---
Nutrition F/U RD reviewed pt's current EMR record including diet Hx, physician notes, nursing notes, pertinent labs/meds/procedures, care trends, and care activity. Admission Dx: Small Bowel Obstruction Pt w/: Chest pain, Abdominal pian, Partial SBO, Early Pneumonia per MD notes. 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 Pt is POD 15 s/p exploratory lap 06/19 per EMR review. Pt also reported that she had 2 loose BM and some gas today. Pt stated she would like to follow a dairy-free diet while in the hospital, and reported that she enjoys the Ensure Clear ONS, and would like to continue receiving them w/ trays going forward. Per EMR review, PO intake average of 35% x5 meals; abd is soft and non-distended w/ active bowel sounds; last BM x1 07/02. Plans for transfer to higher level of care per RN report. RD offered education, and pt accepted. Please refer to interdisciplinary teaching record for details. Pertinent Medications: KCl packet, protonix IV, morphine, Pertinent Labs: K 3 L (trending down), BG 92 WNL (improved), BUN 3 L (trending down), CRE 0.54 L (trending down) Ht: 5'2"/62" Wt: 150#/68 kg (07/01) -- stable Body Mass Index: 27.43 kg/m2 %IBW: 136 [place]/Adjusted Body Weight: 110#/ 50kg; Adj IBW: 120#/ 54.5 kg Skin Integrity Comment: Chris scale: 16; per nursing notes, surgical incision to anterior medial abd noted Estimated Energy Expenditure (kcals/day) 9994-9862 (25-30 kcal/kg Adj IBW for maintenance) Estimated Protein Required (g/day) 65 (1.2 gm/kg Adj IBW for wound healing) Estimated Fluid Required (l/day) 1.4-1.6 (1ml/calorie for maintenance) Problem/Etiology/Signs/Symptoms Predicted suboptimal oral intake r/t therapeutic diet order AEB intake meeting <50% of estimated needs on clear liquid diet. *improving Altered GI function r/t physiological dysfunction AEB abd pain, N/V and acid reflux. *improving Expected Outcomes/Goals Monitor diet advancement, appetite and PO intake w/ goal of pt meeting more than 75% of estimated nutritional needs, labs trending WNL, normal GI function, skin integrity/wt maintenance. Dietitian Recommendations * Recommend slowly advancing diet to soft (low fiber/bland), dairy-free diet if/when medically appropriate Follow Up High Risk: F/U in 2-3 days
--- NOTE | 2020-07-04 18:38 | NUR ---
Dietitian Recommendations * Recommend slowly advancing diet to soft (low fiber/bland), dairy-free diet if/when medically appropriate LP, RD Please refer to Nutrition F/U for details.
--- NOTE | 2020-07-04 19:40 | NUR ---
Opening note Received patient awake, resting in bed. No distress and non labored breathing on room air. She denies pain. She reports she is upset about transfer; she said she is the patient and she is the last to know what is going on. She requested to speak with charge nurse and I will notify. IVF infusing via IV to LFA. Side rails up and bed alarm is off for she has been ambulating out of bed to restroom.
--- NOTE | 2020-07-04 19:45 | NUR ---
Opening note Received patient awake, resting in bed. No distress and non labored breathing on room air. She reports pain, will give pain med. IV is SL to right hand. Side rails up and bed alarm on. Call light and phone w/in reach. Addendum: 07/05/20 at 0739 by Christiana Siddiqui RN this note is not for this patient; entered in error
[2020-07-04 20:45] VITALS: BP_SYST 125
[2020-07-04] MEDS: AZITHROMYCIN 500 MG in NS 250 ML IV SCH (21:03)
--- NOTE | 2020-07-04 21:05 | NUR ---
antibiotic Due antibiotic, Zithromax administered; reviewed side effects and she verbalized understanding
--- NOTE | 2020-07-04 21:35 | NUR ---
pain med Patient requesting Tylenol with codeine for abdominal pain 09/26; it was given, will continue to monitor.
--- NOTE | 2020-07-04 22:27 | NUR ---
Called report to [facility] S/W SHARYN Caba and endorsed report [phone]
[2020-07-04] MEDS: cefTRIAXone 1 GM IVPB PREMIX 50 ML IV SCH (22:49)
--- NOTE | 2020-07-04 23:20 | NUR ---
PT TRANSFERRED / discharge note Report given to ANTONELLA Patel from [facility]. Transfer packet with Transfer Orders and Medication Reconciliation form given to EMT. Exitcare provided. [facility] ID band removed, replaced with ID band with pt's name and . Patient kept cell phone, scrap charger and eyeglasses and rest of belongings will be picked up by on wednesday. Patient left floor via gurney escorted by EMT in no distress.
== END 2020-07-04 23:20 | disposition short-term general hospital (02) | DRG 389 ==
LOC: SED 16:10 → SMU 20:27
PROVIDERS: ADMIT Internal Medicine Hospice and Palliative Medicine; ATTEND Internal Medicine Hospice and Palliative Medicine
PROC: 0D9670Z Drainage of Stomach with Drainage Device, Via Natural or Artificial Opening (ICD-10-PCS; 2020-06-29)
PROC: 02HV33Z Insertion of Infusion Device into Superior Vena Cava, Percutaneous Approach (ICD-10-PCS; 2020-06-29)
PROC: 0DB68ZX Excision of Stomach, Via Natural or Artificial Opening Endoscopic, Diagnostic (ICD-10-PCS; 2020-07-04)
PROC: 0DB58ZX Excision of Esophagus, Via Natural or Artificial Opening Endoscopic, Diagnostic (ICD-10-PCS; principal; 2020-07-04 09:00)
DX: K56.600 Partial intestinal obstruction, unspecified as to cause (principal); E44.1 Mild protein-calorie malnutrition; E03.9 Hypothyroidism, unspecified; K22.2 Esophageal obstruction; F32.9 Major depressive disorder, single episode, unspecified; K21.00 Gastro-esophageal reflux disease with esophagitis, without bleeding; Z20.822 Contact with and (suspected) exposure to COVID-19; K29.70 Gastritis, unspecified, without bleeding; R13.10 Dysphagia, unspecified; Z98.84 Bariatric surgery status; Z79.899 Other long term (current) drug therapy; Z68.27 Body mass index [BMI] 27.0-27.9, adult
CPT/HCPCS: 36415; 43239; 71045; 71275; 74021; 74250-TC; 76376; 80053; 84484; 84703; 85025; 85379; 85610-TC; 85730-TC; 87081; 88305; 88312; 88313; 93005; 93970; 96365; 96375; 96376; C9113; J0456; J0696; J2175; J2250; J2270; J2405; J7030; J7050; Q9963; Q9967